=== PATIENT | male | born 1940 | race Caucasian/White ===

== ENCOUNTER → 2023-10-24 08:24 | Outpatient (REF) | payer MEDICARE, OTHER, SELFPAY | LOC: RAD 08:24 | PROVIDERS: ATTENDING PHYSICIAN Family Medicine; OTHER PHYSICIAN Internal Medicine Rheumatology; REFERRING PHYSICIAN Family Medicine | DX: R22.43 Localized swelling, mass and lump, lower limb, bilateral (principal); R68.89 Other general symptoms and signs | CPT/HCPCS: 93922; 93925; 93970 ==